=== PATIENT | female | born 1995 | race Caucasian/White ===

== ENCOUNTER 2016-05-06 07:20 | Emergency (ER) | payer OTHER ==
[2016-05-06 07:33] VITALS: BP 120/56; PULSE 72; RESP 18; TEMP 97.9; O2SAT 95
[2016-05-06] MEDS ORDERED: IBUPROFEN 600 MG TAB PO ONE (07:45)
--- NOTE | 2016-05-06 07:46 | UCPHY ---
H & P Time Seen by Provider: 05/06/16 07:30 Patient Type: New HPI/ROS: This patient complains of left ear pain that started 4:00 a.m. and awakened her from sleep is described as achy in nature and 6 to 7/10 in pain. She has not tried any medications yet for the pain. No other exacerbating factors noted. She has associated nasal congestion over the past week. She has occasional dry cough as well. 3 days prior to arrival she had a 24 hour episode of vomiting diarrhea that has resolved. She is now tolerating good p.o. intake without nausea. ROS: No high fevers or chills. No other constitutional symptoms. HEENT: No ear drainage. No significant right ear pain. No sore throat. Pulmonary: No pleuritic pain or shortness of breath no wheezing. 7 point ROS is otherwise negative. Past Medical/Surgical History: Otherwise healthy Social History: [employer] student Smoking Status: Never smoked Physical Exam: Physical Exam Vital signs are normal. General: No acute distress HEENT: Nose: Clear discharge bilaterally. No sinus tenderness to percussion. Ears: Left ear exam external canals clear left TM with clear effusion and a clear TM right external canals clear right TM is erythematous with a serous effusion.. Oropharynx: No erythema or exudates. No dysphonia. No drooling or stridor. Eyes: Pupils equal and react to light. Extraocular motions are intact. Neck: Supple Lungs: Clear to auscultation bilaterally with no rales, rhonchi or wheeze. No respiratory distress. Cardiac: Regular rate and rhythm with no murmur gallop or rub Skin: No rash or pallor. Neuro: Alert with no focal deficits noted. Constitutional: Initial Vital Signs Temperature (C) 36.6 C 05/06/16 07:30 Heart Rate 72 05/06/16 07:30 Respiratory Rate 18 05/06/16 07:30 Blood Pressure 120/56 L 05/06/16 07:30 O2 Sat (%) 95 05/06/16 07:30 O2 Delivery Mode Room Air Allergies/Adverse Reactions: No Known Allergies Allergy (Unverified 05/06/16 07:29) Home Medications: Medication Instructions Recorded Bcp 05/06/16 Departure - Departure Disposition: Home, Routine, Self-Care Clinical Impression: Otitis media Qualifiers: Otitis media type: serous Laterality: left Chronicity: acute Recurrence: not specified as recurrent Qualified Code(s): H65.02 - Acute serous otitis media, left ear Condition: Good Instructions: Otitis Media (ED) Additional Instructions: Dx: Otitis Media Your ear inflammation is early in its process - no puss yet in your inner ear. Plan: Humidifier Ibuprofen or alleve regularly until symptoms resolve. robitussin Flonase steroid nasal spray. Symptoms worsen despite this treatment plan over the next few days or you develop fevers in addition, then start Amoxil antibiotic as well. Return for any significant worsening despite the treatment plan - PQRS PQRS Measurement: NA
== END 2016-05-06 08:00 | disposition home or self-care (01) ==
LOC: CED 07:20
DX: H65.02 Acute serous otitis media, left ear (principal)
CPT/HCPCS: 99203-PO; G0463-PO